=== PATIENT | female | born 1950 | race Caucasian/White ===

== ENCOUNTER → 2016-08-15 | Outpatient (CLI) | payer BC, OTHER ==
[~2016-08-15] MED LIST: ACCOLATE20 MG PO; APAP W/CODEINE1 TA3 PO; ASPIRIN325 PO; AZITHROMYCIN 2250 MG PO; BENICAR HCT 401 EACH PO; BENICAR40 MG PO; BENTYL 20 MG TA20 M1 PO; COMPAZINE10 MG PO; COUMADIN 5 MG TA5 M1 PO; COUMADIN7.5 MG PO; DEXILANT60 MG PO; ENABLEX15 MG PO; FEXOFENADINE H180 MG PO; FISH OIL 1,001000 M2 PO; FISH OIL PO; FISHOIL PO; FLOMAX0.4 MG PO; FOLIC ACID 40400 MCG PO; FOLIC ACID0.8 MG PO; GLUCOPHAGE XR500 MG PO; KEFLEX500 MG PO; KLOR-CON 1010 MEQ PO; LIPITOR80 MG PO; LOVENOX; METFORMIN HCL500 MG PO; METOCLOPRAMIDE10 MG PO; MIRALAX255 GM PO; NIASPAN 500 MG500 M1 PO; OSTERA TABLET1 EACH PO; OXYCODON-ACETA1 EAC1 PO; POTASSIUM CITRA5 MEQ PO; PREVACID 30MG C30 M1 PO; PREVACID30 MG PO; PROAIR HFA8.5 GM INH; QVAR HFA 880 MCG/UN1 INH; QVAR8.7 G1 INH; SINGULAIR 10 MG10 M1 PO; TOVIAZ4 M1 PO; TRICOR145 MG PO; TYLENOL #4 PO; VITAMIN D2000 UNIT PO; ZAFIRLUKAST20 MG PO
== END ==
LOC: ULTRA 09:51
DX: R39.14 Feeling of incomplete bladder emptying (principal)

== ENCOUNTER → 2016-09-15 | Outpatient (CLI) | payer BC | LOC: RAD 01:11 | DX: Z12.31 Encounter for screening mammogram for malignant neoplasm of breast (principal) ==

== ENCOUNTER → 2017-05-26 | Outpatient (CLI) | payer OTHER ==
[~2017-05-26] MED LIST changes: +CIPRO500 MG PO; +FLAGYL500 MG PO; +MIRALAX17 G1 PO; +PERCOCET PO; +URECHOLINE 10 M10 M1 PO; +URECHOLINE50 MG PO
== END ==
LOC: ULTRA 10:56
DX: N28.1 Cyst of kidney, acquired (principal); R39.14 Feeling of incomplete bladder emptying

== ENCOUNTER 2017-06-09 07:17 | Inpatient (IN) | payer OTHER ==
[~2017-06-09] VITALS: Ht 152.4 cm; Wt 118.8 kg
--- NOTE | ~2017-06-09 | H ---
[facility] [place] [address] HISTORY AND PHYSICAL Name: JOSHUA ENG Room #: 222-P [facility] IN .R.#: [id number] Admission: 06/09/17 Attend Phys: Placido Melendez MD Discharge: 06/12/17 Date of : 48 Report #: [id number] THIS REPORT FOR: //name// CC: Placido Melendez DATE OF SERVICE: 06/09/2017 CHIEF COMPLAINT: Severe abdominal pain. HISTORY OF PRESENT ILLNESS: The patient came to the Emergency Room with left flank and left abdominal pain that began in the medical assistant internal medicine hours. Lying on the left side gives her some relief. She had oxycodone at home that she took, but it did not give relief. The Emergency Room physician found tenderness to palpation in the left lower quadrant. A CT scan by renal stone protocol showed acute stranding with inflammatory change involving thickening in the segment of the descending colon characteristic of diverticulitis. The patient was felt to have acute diverticulitis and admission was indicated for intravenous antibiotic therapy. 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 HOME MEDICATIONS: Urecholine 50 mg twice daily, atorvastatin 80 mg daily, dicyclomine 20 mg as needed for abdominal spasms, vitamin D3 at 2000 units daily, folic acid 0.8 mg daily, MiraLax daily, metformin XR 500 mg twice daily, olmesartan 40 mg daily for hypertension, warfarin on an adjusted dose -- currently 5 mg Tuesdays, , Saturdays and Sundays, zafirlukast 20 mg twice daily, dexlansoprazole 60 mg once daily, warfarin 7.5 mg Mondays, Wednesdays and Fridays, fish oil 1200 mg twice daily, Tylenol No. 4 p.r.n. for migraine headache, tamsulosin 0.4 mg daily and potassium citrate 2 tablets twice daily to help treat her kidney stones. ALLERGIES: LISTED TO MORPHINE, PHENOBARBITAL, FLONASE AND HYDROCODONE -- WHICH WAS INEFFECTIVE. SOCIAL HISTORY: She lives in her own home. 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 She does not use alcohol nor drugs of abuse. REVIEW OF SYSTEMS: Negative except for the HPI above. PHYSICAL EXAMINATION: GENERAL: Shows a 66-year-old female who is awake and alert and in minimal distress at the time of my examination. HEENT: Unremarkable except for being a little dry. [address] [address] HISTORY AND PHYSICAL Name: JOSHUA ENG Room #: 222-P [facility] M.R.#: [id number] Admission: 06/09/17 Attend Phys: Placido Melendez MD Discharge: 06/12/17 Date of : 48 Report #: [id number] LUNGS: Clear. CARDIOVASCULAR: Heart tones are normal. ABDOMEN: There is tenderness to palpation in the left lower quadrant. Bowel sounds are normal. EXTREMITIES: There is no pedal edema present in the extremities. NEUROLOGIC: Grossly intact. ASSESSMENT: 1. Acute diverticulitis of left lower quadrant. 2. Volume depletion. 3. Complex kidney stone history. 4. Asthma that is stable. 5. History of deep venous thrombosis and pulmonary embolus in the past -- on warfarin. 6. BMI 47 (5 feet 2 inches height, 262 lbs) PLAN: The patient is admitted for intravenous antibiotic therapy with ciprofloxacin and metronidazole intravenously. A surgical consultation will be obtained. <ELECTRONICALLY SIGNED> By: Placido Melendez MD 08/26/172007 10 27 Placido Melendez MD /nt
--- NOTE | ~2017-06-09 | HC ---
[facility] [place] [address] CONSULTATION Name: JOSHUA ENG Room #: 421-P [facility] IN ..#: [id number] Admission: 06/09/17 Attend Phys: Placido Melendez MD Discharge: Date of : 48 Report #: [id number] THIS REPORT FOR: //name// CC: Placido Melendez MD DATE OF SERVICE: 06/09/2017 REASON FOR CONSULTATION: Acute diverticulitis. HISTORY OF PRESENT ILLNESS: The patient is a 66-year-old who has been admitted for evaluation of abdominal pain. The pain started early this morning. The pain was on the left side in the lower part of the abdomen. She was doing well the day before. She did have a kidney stone history last year. She thought perhaps this was a kidney stone again. She did have an ultrasound just recently on 05/26/2017, which was ordered by the urologist, but that was mainly because she felt like she was not emptying her bladder well. She was seen in the Emergency Room and evaluation with CT scan showed acute diverticulitis. The patient denies nausea or vomiting. She actually had a bowel movement yesterday, which was normal. No diarrhea. No blood in her stool. She has not had a colonoscopy for a while. Dr. Rashid has been the GI that has been doing her colonoscopy. The patient was afebrile, temperature 36.9. White count was 7700. PAST MEDICAL HISTORY: Significant for kidney stones last year. She has a history of hypertension; GERD; hiatal hernia; possible CT in the past. Pulmonary embolus, history of DVT, left calf in 2011. Elevated cholesterol. PHYSICAL EXAMINATION: GENERAL: The patient is well developed and well nourished, moderately obese. ABDOMEN: Obese. She is tender in the left lower quadrant. There is no guarding or rigidity. Bowel sounds are slightly diminished. She is nontender in the 3 other quadrants of her abdomen. IMPRESSION: The patient is a 66-year-old with history and CT findings consistent with acute diverticulitis. There is stranding around it, some fluid in the pericolic gutter on the left side. I do not see any free air around the colon. I do not see any abscess formation. This is in the proximal part of the sigmoid colon. The patient received a dose of Cipro and Flagyl. We will order Cipro and Flagyl on a scheduled basis, 400 b.i.d. of Cipro and 500 q.6 hours of Flagyl. I did talk to the nurse earlier that she was having fairly significant pain, that Fentanyl was not working. I ordered for Dilaudid 1 mg q.2 hours and that has helped and she is much more comfortable currently. The patient is aware that I do not think she needs to have surgery. Likely with repeated episodes, we will need to have surgical treatment. This is her first episode. She should respond to the antibiotics since I do not see any complication from [address] [address] CONSULTATION Name: JOSHUA ENG Room #: 421-P [facility] IN M.R.#: [id number] Admission: 06/09/17 Attend Phys: Placido Melendez MD Discharge: Date of : 48 Report #: [id number] the diverticulitis at this point. It will take probably 2-3 days for the pain to subside. <ELECTRONICALLY SIGNED> By: Farhan Benitez MD 06/11/17 1549 1710 [id number] Farhan Benitez MD /nt
[2017-06-09 07:17] VITALS: BP 160/91
[~2017-06-09 07:17] MED LIST changes: -CIPRO500 MG PO; -FLAGYL500 MG PO; -MIRALAX17 G1 PO; -PERCOCET PO; -URECHOLINE 10 M10 M1 PO; -URECHOLINE50 MG PO
[2017-06-09] MEDS ORDERED: URECHOLINE 10 M10 M1 PO (07:26)
[2017-06-09] MEDS ORDERED: MIRALAX17 G1 PO (07:26)
[2017-06-09 08:03] LABS: BASOPHILS 0.4 % (0.0-2.0); EOSINOPHILS 1.3 % (0.0-3.0); HEMATOCRIT 38.4 % (37.0-47.0); HEMOGLOBIN 12.6 gm/dL (12.0-15.0); LYMPHOCYTES 12.9 % (24.0-44.0); MCH 27.4 pg (26.0-34.0); MCHC 32.8 g/dL (28.0-37.0); MCV 83.6 fL (80.0-100.0); MONOCYTES 7.1 % (1.0-8.0); PLATELET COUNT 247 thou/uL (150-400); POLYS 78.3 % (36.0-66.0); RDW 16.9 % (10.5-14.5); WBC 7.7 thou/uL (4.0-11.0)
[2017-06-09 08:10] LABS: CALCIUM 10.2 mg/dL (8.5-10.1); POTASSIUM 4.6 mmol/L (3.5-5.1)
[2017-06-09 08:25] LABS: URINE BILIRUBIN NEGATIVE (Negative); URINE BLOOD NEGATIVE (Negative); URINE CLARITY CLEAR; URINE COLOR YELLOW; URINE GLUCOSE-RANDOM* NEGATIVE (Negative); URINE KETONES TRACE (Negative); URINE LEUKOCYTES NEGATIVE (Negative); URINE NITRITE NEGATIVE (Negative); URINE PROTEIN (DIPSTICK) NEGATIVE (Negative)
[2017-06-09 10:58] VITALS: BP 133/64
[2017-06-09 11:08] VITALS: BP 133/71
[2017-06-09 15:10] VITALS: BP 123/80
[2017-06-09 18:09] LABS: CREATININE 0.9 mg/dL (0.6-1.0); POTASSIUM 4.2 mmol/L (3.5-5.1)
[2017-06-09 20:07] LABS: INR 1.6; PROTIME 15.8 Seconds (9.3-11.4)
[2017-06-09 20:47] VITALS: BP 113/63
[2017-06-10 04:00] VITALS: BP 100/60
[2017-06-10] MEDS ORDERED: URECHOLINE50 MG PO (05:41)
[2017-06-10 06:04] LABS: HEMATOCRIT 35.8 % (37.0-47.0); HEMOGLOBIN 11.7 gm/dL (12.0-15.0); MCH 27.2 pg (26.0-34.0); MCHC 32.8 g/dL (28.0-37.0); MCV 83.1 fL (80.0-100.0); RBC 4.31 mil/uL (4.20-5.00); RDW 16.7 % (10.5-14.5); WBC 6.7 thou/uL (4.0-11.0)
[2017-06-10 06:13] LABS: CALCIUM 8.9 mg/dL (8.5-10.1); CREATININE 0.9 mg/dL (0.6-1.0); POTASSIUM 3.8 mmol/L (3.5-5.1)
[2017-06-10 06:14] LABS: INR 1.6; PROTIME 16.1 Seconds (9.3-11.4)
[2017-06-10 09:01] VITALS: BP 122/66
[2017-06-10 15:28] VITALS: BP 129/73
[2017-06-10 19:59] VITALS: BP 131/80
[2017-06-11 03:27] VITALS: BP 103/62
[2017-06-11 06:22] LABS: HEMATOCRIT 33.7 % (37.0-47.0); MCHC 32.6 g/dL (28.0-37.0); MCV 82.6 fL (80.0-100.0); RBC 4.08 mil/uL (4.20-5.00); RDW 16.8 % (10.5-14.5); WBC 4.9 thou/uL (4.0-11.0)
[2017-06-11 06:35] LABS: ALBUMIN 2.5 g/dL (3.4-5.0); CALCIUM 8.7 mg/dL (8.5-10.1); CREATININE 0.9 mg/dL (0.6-1.0); POTASSIUM 3.6 mmol/L (3.5-5.1); TOTAL BILIRUBIN 0.6 mg/dL (<0.1-1.0); TOTAL PROTEIN 5.9 g/dL (6.4-8.2)
[2017-06-11 07:46] VITALS: BP 110/56
[2017-06-11 16:06] VITALS: BP 105/59
[2017-06-11 20:00] VITALS: BP 106/52
[2017-06-12 08:22] VITALS: BP 144/84
[2017-06-12] MEDS ORDERED: FLAGYL500 MG PO (12:15)
[2017-06-12] MEDS ORDERED: CIPRO500 MG PO (12:15)
[2017-06-12] MEDS ORDERED: PERCOCET PO (12:16)
[2017-06-12 14:21] VITALS: BP 144/84
== END 2017-06-12 15:31 | disposition home or self-care (01) | DRG 391 ==
LOC: ER 07:17 → 4E 08:54 → EROBS 08:54 → 4E 11:02 → SICU 06-11 19:02 → ENTRNSPT 06-12 14:40 → EDTRNSPTSTS 06-12 14:42 → SICU 06-12 15:31
PROVIDERS: Emergency Medicine; Internal Medicine
DX: K57.32 Diverticulitis of large intestine without perforation or abscess without bleeding (principal); E43 Unspecified severe protein-calorie malnutrition; Z68.43 Body mass index [BMI] 50.0-59.9, adult; G43.909 Migraine, unspecified, not intractable, without status migrainosus; N32.89 Other specified disorders of bladder; I10 Essential (primary) hypertension; J45.909 Unspecified asthma, uncomplicated; E11.9 Type 2 diabetes mellitus without complications; E78.00 Pure hypercholesterolemia, unspecified; K21.9 Gastro-esophageal reflux disease without esophagitis; E66.9 Obesity, unspecified; Z90.710 Acquired absence of both cervix and uterus; Z90.722 Acquired absence of ovaries, bilateral; I25.2 Old myocardial infarction; Z87.442 Personal history of urinary calculi; Z86.718 Personal history of other venous thrombosis and embolism; Z86.711 Personal history of pulmonary embolism; Z79.01 Long term (current) use of anticoagulants; Z79.84 Long term (current) use of oral hypoglycemic drugs; Z79.899 Other long term (current) drug therapy; Z88.5 Allergy status to narcotic agent; Z88.8 Allergy status to other drugs, medicaments and biological substances
CPT/HCPCS: 10084; 15000

== ENCOUNTER → 2017-09-16 | Outpatient (CLI) | payer OTHER ==
[~2017-09-16] MED LIST changes: +CIPRO500 MG PO; +FLAGYL500 MG PO; +MIRALAX17 G1 PO; +PERCOCET PO; +URECHOLINE 10 M10 M1 PO; +URECHOLINE50 MG PO
== END ==
LOC: RAD 01:28
DX: Z12.31 Encounter for screening mammogram for malignant neoplasm of breast (principal)

== ENCOUNTER → 2018-03-30 | Outpatient (CLI) | payer OTHER | LOC: ULTRA 11:39 | DX: N28.1 Cyst of kidney, acquired (principal) ==

== ENCOUNTER → 2018-10-14 | Outpatient (CLI) | payer OTHER | LOC: RAD 01:56 | DX: Z12.31 Encounter for screening mammogram for malignant neoplasm of breast (principal) ==

== ENCOUNTER 2019-01-28 13:41 | Emergency (ER) | payer OTHER ==
[~2019-01-28] VITALS: Ht 157.5 cm; Wt 117.9 kg
[2019-01-28 14:01] LABS: URINE BILIRUBIN NEGATIVE (Negative); URINE BLOOD NEGATIVE (Negative); URINE CLARITY CLEAR; URINE COLOR YELLOW; URINE GLUCOSE-RANDOM* NEGATIVE (Negative); URINE KETONES NEGATIVE (Negative); URINE LEUKOCYTES-REFLEX NEGATIVE (Negative); URINE NITRITE-REFLEX NEGATIVE (Negative); URINE PROTEIN (DIPSTICK) NEGATIVE (Negative); URINE SPECIFIC GRAVITY 1.015 (1.005-1.035); URINE UROBILINOGEN 0.2 E.U./dl (0.2-1.0)
[2019-01-28 14:38] LABS: ABSOLUTE NEUTROPHILS 2.5 thou/uL (1.4-8.2); BASOPHILS 1.1 % (0.0-2.0); EOSINOPHILS 3.9 % (0.0-3.0); HEMATOCRIT 40.3 % (37.0-47.0); HEMOGLOBIN 12.7 gm/dL (12.0-15.0); LYMPHOCYTES 26.7 % (24.0-44.0); MCH 25.8 pg (26.0-34.0); MCHC 31.5 g/dL (28.0-37.0); MCV 81.9 fL (80.0-100.0); MONOCYTES 7.5 % (1.0-8.0); PLATELET COUNT 239 thou/uL (150-400); POLYS 60.8 % (36.0-66.0); RBC 4.92 mil/uL (4.20-5.00); WBC 4.2 thou/uL (4.0-11.0)
[2019-01-28 14:46] LABS: CALCIUM 10.4 mg/dL (8.5-10.1); CREATININE 0.8 mg/dL (0.6-1.0)
[2019-01-28 14:52] LABS: ALBUMIN 3.8 g/dL (3.4-5.0); TOTAL BILIRUBIN 0.9 mg/dL (<0.1-1.0); TOTAL PROTEIN 7.5 g/dL (6.4-8.2)
[2019-01-28 15:49] VITALS: BP 184/91
== END 2019-01-28 15:49 | disposition home or self-care (01) ==
LOC: ER 13:41
PROVIDERS: Emergency Medicine
DX: M54.5 Low back pain (principal); G43.909 Migraine, unspecified, not intractable, without status migrainosus; I10 Essential (primary) hypertension; K21.9 Gastro-esophageal reflux disease without esophagitis; J45.909 Unspecified asthma, uncomplicated; E78.00 Pure hypercholesterolemia, unspecified; E11.9 Type 2 diabetes mellitus without complications; Z88.5 Allergy status to narcotic agent; Z88.8 Allergy status to other drugs, medicaments and biological substances; Z90.710 Acquired absence of both cervix and uterus; Z87.442 Personal history of urinary calculi

== ENCOUNTER → 2019-09-07 | Outpatient (CLI) | payer OTHER | LOC: EDSTATUS 08:14 → NUC 11:23 | PROVIDERS: ATTEND Internal Medicine Cardiovascular Disease | DX: I25.10 Atherosclerotic heart disease of native coronary artery without angina pectoris (principal) ==

== ENCOUNTER → 2019-09-07 | Outpatient (CLI) | payer OTHER | LOC: SJCVC 15:39 | PROVIDERS: ATTEND Internal Medicine Cardiovascular Disease | DX: I25.10 Atherosclerotic heart disease of native coronary artery without angina pectoris (principal); I10 Essential (primary) hypertension; E78.00 Pure hypercholesterolemia, unspecified; J45.909 Unspecified asthma, uncomplicated; E11.9 Type 2 diabetes mellitus without complications; K21.9 Gastro-esophageal reflux disease without esophagitis; E78.5 Hyperlipidemia, unspecified; M19.90 Unspecified osteoarthritis, unspecified site; Z79.01 Long term (current) use of anticoagulants; Z79.84 Long term (current) use of oral hypoglycemic drugs; Z79.899 Other long term (current) drug therapy; Z87.891 Personal history of nicotine dependence ==

== ENCOUNTER 2019-10-16 09:56 | Emergency (ER) | payer OTHER ==
[~2019-10-16] VITALS: Ht 157.5 cm; Wt 113.4 kg
[2019-10-16 10:13] LABS: URINE BILIRUBIN NEGATIVE (Negative); URINE BLOOD NEGATIVE (Negative); URINE CLARITY CLEAR; URINE COLOR YELLOW; URINE GLUCOSE-RANDOM* NEGATIVE (Negative); URINE KETONES NEGATIVE (Negative); URINE LEUKOCYTES-REFLEX NEGATIVE (Negative); URINE NITRITE-REFLEX NEGATIVE (Negative); URINE PROTEIN (DIPSTICK) NEGATIVE (Negative); URINE SPECIFIC GRAVITY >= 1.030 (1.005-1.035); URINE UROBILINOGEN 0.2 E.U./dl (0.2-1.0)
[2019-10-16 10:44] LABS: ABSOLUTE NEUTROPHILS 1.8 thou/uL (1.4-8.2); BASOPHILS 0.8 % (0.0-2.0); EOSINOPHILS 6.8 % (0.0-3.0); HEMATOCRIT 38.9 % (37.0-47.0); HEMOGLOBIN 12.9 gm/dL (12.0-15.0); LYMPHOCYTES 39.6 % (24.0-44.0); MCH 28.3 pg (26.0-34.0); MCHC 33.2 g/dL (28.0-37.0); MCV 85.4 fL (80.0-100.0); MONOCYTES 9.1 % (1.0-8.0); PLATELET COUNT 188 thou/uL (150-400); POLYS 43.7 % (36.0-66.0); RBC 4.55 mil/uL (4.20-5.00); RDW 16.7 % (10.5-14.5)
[2019-10-16 10:56] LABS: CALCIUM 8.9 mg/dL (8.5-10.1); CREATININE 1.1 mg/dL (0.6-1.0); POTASSIUM 3.8 mmol/L (3.5-5.1)
[2019-10-16 10:59] LABS: APTT 34.8 Seconds (24.5-32.8); INR 2.9; PROTIME 29.4 Seconds (9.3-11.4)
[2019-10-16 11:02] LABS: ALBUMIN 3.7 g/dL (3.4-5.0); TOTAL BILIRUBIN 0.6 mg/dL (0.2-1.0); TOTAL PROTEIN 6.6 g/dL (6.4-8.2)
[2019-10-16] MEDS ORDERED: SENNA-DOCUSATE1 EAC1 PO (12:34)
[2019-10-16] MEDS ORDERED: PERCOCET 5-3251 EACH PO (12:34)
[2019-10-16] MEDS ORDERED: NORFLEX100 MG PO (12:34)
[2019-10-16] MEDS ORDERED: PERCOCET 7.5-31 EACH PO (12:37)
[2019-10-16 13:18] VITALS: BP 135/71
== END 2019-10-16 13:36 | disposition home or self-care (01) ==
LOC: ER 09:56
PROVIDERS: Emergency Medicine
DX: S39.012A Strain of muscle, fascia and tendon of lower back, initial encounter (principal); I10 Essential (primary) hypertension; K21.9 Gastro-esophageal reflux disease without esophagitis; E78.5 Hyperlipidemia, unspecified; E11.9 Type 2 diabetes mellitus without complications; G43.909 Migraine, unspecified, not intractable, without status migrainosus; Z79.2 Long term (current) use of antibiotics; Z79.899 Other long term (current) drug therapy; Z88.5 Allergy status to narcotic agent; Z88.8 Allergy status to other drugs, medicaments and biological substances; X58.XXXA Exposure to other specified factors, initial encounter; Y93.89 Activity, other specified; Y92.89 Other specified places as the place of occurrence of the external cause; Y99.8 Other external cause status

== ENCOUNTER → 2019-10-17 | Outpatient (CLI) | payer OTHER ==
[~2019-10-17] MED LIST changes: +NORFLEX100 MG PO; +PERCOCET 5-3251 EACH PO; +PERCOCET 7.5-31 EACH PO; +SENNA-DOCUSATE1 EAC1 PO
== END ==
LOC: BC 09-26 09:19 → RAD 12:30
PROVIDERS: ATTEND Obstetrics & Gynecology
DX: Z12.31 Encounter for screening mammogram for malignant neoplasm of breast (principal)

== ENCOUNTER → 2020-05-02 | Outpatient (CLI) | payer OTHER | LOC: SJCVCIMAG 10:34 | PROVIDERS: ATTEND Internal Medicine Cardiovascular Disease | DX: M79.661 Pain in right lower leg (principal) ==

== ENCOUNTER → 2020-09-06 | Outpatient (CLI) | payer OTHER | LOC: SJCVC 13:07 | PROVIDERS: ATTEND Internal Medicine Cardiovascular Disease | DX: R94.31 Abnormal electrocardiogram [ECG] [EKG] (principal); I25.10 Atherosclerotic heart disease of native coronary artery without angina pectoris; I10 Essential (primary) hypertension; E78.00 Pure hypercholesterolemia, unspecified; J45.909 Unspecified asthma, uncomplicated; E11.9 Type 2 diabetes mellitus without complications; K21.9 Gastro-esophageal reflux disease without esophagitis; E78.5 Hyperlipidemia, unspecified; G47.33 Obstructive sleep apnea (adult) (pediatric); M19.90 Unspecified osteoarthritis, unspecified site; G43.909 Migraine, unspecified, not intractable, without status migrainosus; Z86.718 Personal history of other venous thrombosis and embolism; Z88.8 Allergy status to other drugs, medicaments and biological substances; Z79.01 Long term (current) use of anticoagulants; Z79.84 Long term (current) use of oral hypoglycemic drugs; Z79.899 Other long term (current) drug therapy; Z87.891 Personal history of nicotine dependence ==

== ENCOUNTER → 2020-09-14 | Outpatient (CLI) | payer OTHER | LOC: CAT 14:58 | PROVIDERS: ATTEND Internal Medicine Cardiovascular Disease | DX: Z13.6 Encounter for screening for cardiovascular disorders (principal); E78.00 Pure hypercholesterolemia, unspecified; I25.10 Atherosclerotic heart disease of native coronary artery without angina pectoris ==

== ENCOUNTER → 2020-10-30 | Outpatient (CLI) | payer OTHER | LOC: BC 14:11 | PROVIDERS: ATTEND Internal Medicine | DX: Z12.31 Encounter for screening mammogram for malignant neoplasm of breast (principal) ==

== ENCOUNTER 2021-02-10 00:33 | Emergency (ER) | payer OTHER ==
[~2021-02-10] VITALS: Ht 157.5 cm; Wt 108.9 kg
[2021-02-10] MEDS ORDERED: ROSUVASTATIN CA40 MG PO (01:02)
[2021-02-10] MEDS ORDERED: WARFARIN SODIUM5 MG PO (01:03)
[2021-02-10] MEDS ORDERED: IRBESARTAN300 MG PO (01:05)
[2021-02-10] MEDS ORDERED: BETAMETHASONE D15 G4 TOP (01:06)
[2021-02-10 01:25] LABS: ABSOLUTE NEUTROPHILS 6.1 thou/uL (1.4-8.2); BASOPHILS 0.5 % (0.0-2.0); EOSINOPHILS 2.2 % (0.0-3.0); HEMATOCRIT 39.1 % (37.0-47.0); HEMOGLOBIN 12.9 gm/dL (12.0-15.0); LYMPHOCYTES 11.8 % (24.0-44.0); MCH 27.1 pg (26.0-34.0); MCV 82.1 fL (80.0-100.0); MONOCYTES 7.9 % (1.0-8.0); PLATELET COUNT 266 thou/uL (150-400); POLYS 77.6 % (36.0-66.0); RBC 4.76 mil/uL (4.20-5.00); RDW 16.8 % (10.5-14.5); WBC 7.8 thou/uL (4.0-11.0)
[2021-02-10 03:24] LABS: URINE BILIRUBIN NEGATIVE (Negative); URINE BLOOD NEGATIVE (Negative); URINE CLARITY CLEAR; URINE COLOR YELLOW; URINE GLUCOSE-RANDOM* NEGATIVE (Negative); URINE KETONES NEGATIVE (Negative); URINE LEUKOCYTES-REFLEX NEGATIVE (Negative); URINE NITRITE-REFLEX NEGATIVE (Negative); URINE PROTEIN (DIPSTICK) TRACE (Negative); URINE SPECIFIC GRAVITY 1.025 (1.005-1.035)
[2021-02-10 03:34] LABS: ALBUMIN 3.7 g/dL (3.4-5.0); CALCIUM 9.4 mg/dL (8.5-10.1); DIRECT BILIRUBIN 0.1 mg/dL (<0.1-0.2); POTASSIUM 4.4 mmol/L (3.5-5.1); TOTAL BILIRUBIN 0.6 mg/dL (0.2-1.0); TOTAL PROTEIN 7.6 g/dL (6.4-8.2)
[2021-02-10] MEDS ORDERED: LEVOFLOXACIN750 MG PO (05:14)
[2021-02-10] MEDS ORDERED: METRONIDAZOLE500 M4 PO (05:14)
[2021-02-10 05:24] VITALS: BP 178/82
== END 2021-02-10 05:25 | disposition home or self-care (01) ==
LOC: ER 00:33
PROVIDERS: Student in an Organized Health Care Education/Training Program
DX: K57.92 Diverticulitis of intestine, part unspecified, without perforation or abscess without bleeding (principal); Z20.822 Contact with and (suspected) exposure to COVID-19; G43.909 Migraine, unspecified, not intractable, without status migrainosus; I10 Essential (primary) hypertension; K21.9 Gastro-esophageal reflux disease without esophagitis; J45.909 Unspecified asthma, uncomplicated; E11.9 Type 2 diabetes mellitus without complications; E78.00 Pure hypercholesterolemia, unspecified; Z90.710 Acquired absence of both cervix and uterus; Z79.899 Other long term (current) drug therapy; Z88.5 Allergy status to narcotic agent